=== PATIENT | female | born 1990 | race Caucasian/White ===

== ENCOUNTER 2024-09-17 18:12 | Emergency (ER) | payer BC, OTHER ==
[~2024-09-17 18:12] MED LIST: Iopamidol 300 61% 100 ML VIAL FS ONE
[2024-09-17] MEDS ORDERED: Acetaminophen 500 MG TAB ONE (18:40)
[2024-09-17 18:46] LABS: #Basophils 0.05 10x3/uL (0.0-0.2); #Monocytes 0.94 10x3/uL (0.0-1.1); #Neutrophils 11.01 10x3/uL (1.5-8.4); %Basophils 0.3 % (0.0-2.0); %Lymphocytes 16.5 % (18.0-47.0); %Monocytes 6.3 % (0.0-10.0); %Neutrophils 74.3 % (40.0-75.0); Hematocrit 39.5 % (34.9-44.5); Hemoglobin 13.5 g/dL (12.0-15.5); Mean Corpuscular HGB CONC 34.2 g/dL (32.0-36.0); Mean Corpuscular Hemoglobin 30.5 pg (27.0-33.0); Mean Corpuscular Volume 89.4 fL (81.6-98.3); Platelet Count 273 10x3/uL (150-450); RBC Distribution Width 13.7 % (11.5-14.5); Red Blood Cell (RBC) Count 4.42 10x6/uL (3.90-5.03); White Blood Cell (WBC) Count 14.8 10x3/uL (3.5-10.5)
[2024-09-17 19:01] LABS: ALT (SGPT) 23 U/L (8-55); AST (SGOT) 16 U/L (5-34); Albumin 4.1 g/dL (3.5-5.0); Alkaline Phosphatase 76 U/L (40-110); Anion Gap 15 mmol/L (10-20); BUN (Urea Nitrogen) 16 mg/dL (7.0-18.7); Bilirubin, Total 0.5 mg/dL (0.2-1.2); Calc. Creatinine Clearance 0 mL/min (70-130); Calcium 9.3 mg/dL (7.8-10.44); Carbon Dioxide 22 mmol/L (22-29); Chloride 106 mmol/L (98-107); Estimated GFR 63; Globulin 3.6 g/dL (2.4-3.5); Glucose 92 mg/dL (70-105); Potassium 4.2 mmol/L (3.5-5.1); Protein, Total 7.7 g/dL (6.0-8.3); Sodium 139 mmol/L (136-145)
[2024-09-17 19:02] LABS: BHCG - Serum Negative (NEGATIVE); Pregs Control Background? CLEAR/WHITE (CLR/WHITE); Pregs Control Bar Appear? YES (CONTROL BAR)
== END 2024-09-17 20:42 | disposition home or self-care (01) ==
LOC: CSHERS 18:12
DX: M54.2 Cervicalgia (principal); Z55.6 Problems related to health literacy; V89.2XXA Person injured in unspecified motor-vehicle accident, traffic, initial encounter
CPT/HCPCS: 36415; 70450; 71045; 72125; 74177; 80053; 84703; 85025; 93005; Q9967